=== PATIENT | male | born 1945 | race Caucasian/White ===

== ENCOUNTER → 2018-03-18 09:13 | Outpatient (CLI) | payer MEDICARE, OTHER, SELFPAY ==
[2018-03-22 13:45] LABS: QuantiFERON TB NEGATIVE (Negative)
== END ==
PROVIDERS: PCP Internal Medicine; Visit Provider Family Medicine
DX: Z11.1 Encounter for screening for respiratory tuberculosis (principal)
CPT/HCPCS: 36415; 86480

== ENCOUNTER → 2018-07-10 14:33 | Outpatient (CLI) | payer MEDICARE, OTHER, SELFPAY | PROVIDERS: Family Provider Internal Medicine; PCP Internal Medicine; Visit Provider Internal Medicine | DX: R19.7 Diarrhea, unspecified (principal) ==

== ENCOUNTER → 2018-07-10 14:41 | Outpatient (CLI) | payer MEDICARE, OTHER, SELFPAY ==
[2018-07-10 15:25] LABS: Add Manual Diff / Slide Review NO; Basophils Percent Auto 0.7 % (0-2); Eosinophils Percent Auto 2.6 % (2-4); Hematocrit 42.4 % (41-53); Hemoglobin 14.3 g/dL (13.5-17.5); Lymphocytes Percent Auto 31.2 % (25-40); Mean Corpuscular HGB Conc 33.8 % (30-36); Mean Corpuscular Hemoglobin 31.2 PG (26-34); Mean Corpuscular Volume 92.3 fL (80-100); Monocytes Percent Auto 7.3 % (3-14); Neutrophils Absolute Auto 3200 /uL (1500-7000); Neutrophils Percent Auto 58.2 % (50-75); Platelet Count 187 X10^3/uL (150-400); Red Cell Distribution Width 13.2 % (11.6-14.8); White Blood Cell Count 5.5 X10^3/uL (4.5-11.0)
[2018-07-10 16:31] LABS: Alanine Aminotransferase 28 IU/L (21-72); Albumin 4.1 g/dL (3.5-5.0); Albumin Globulin Ratio 1.5 (1.0-2.8); Alkaline Phosphatase 72 U/L (38-126); Amylase 66 U/L (30-110); Aspartate Aminotransferase 21 IU/L (17-59); BUN Creatinine Ratio 34.3 (6-22); Bilirubin Total 0.7 mg/dL (0.2-1.3); Blood Urea Nitrogen 24 mg/dL (9-20); Calcium 9.5 mg/dL (8.4-10.2); Carbon Dioxide 29 mmol/L (22-32); Chloride 104 mmol/L (98-107); Estimated Glomerular Filt Rate > 60.0 mL/min (>60); Globulin 2.8 g/dL (1.7-4.1); Glucose 90 mg/dL (80-110); HEMOLYSIS < 15 (0-50); Lipase 80 U/L (23-300); Potassium 4.3 mmol/L (3.4-5.1); Sodium 140 mmol/L (137-145); Total Protein 6.9 g/dL (6.3-8.2)
[2018-07-10 16:33] LABS: C-Reactive Protein Quant < 0.5 mg/dL (<1.0)
[2018-07-10 17:07] LABS: TSH w/ Reflex to FT4 1.17 uIU/mL (0.47-4.68)
[2018-07-10 18:17] LABS: Erythrocyte Sedimentation Rate 6 MM/HR (0-15)
[2018-07-14 14:37] LABS: PSA Free % 21 % (calc) (> 25); PSA, Total 4.7 ng/mL (< 4.1)
== END ==
PROVIDERS: Family Provider Internal Medicine; PCP Internal Medicine; Visit Provider Internal Medicine
DX: R97.20 Elevated prostate specific antigen [PSA] (principal); R19.7 Diarrhea, unspecified
CPT/HCPCS: 36415; 80053; 82150; 83690; 84153; 84154; 84443; 85025; 85651; 86140

== ENCOUNTER → 2018-07-11 09:06 | Outpatient (CLI) | payer MEDICARE, OTHER, SELFPAY ==
[2018-07-11 11:39] LABS: Adenovirus F 40/41 Not Detected (Not Detect); Astrovirus Not Detected (Not Detect); Campylobacter Not Detected (Not Detect); Clostridium difficile toxin AB Not Detected (Not Detect); Cryptosporidium Not Detected (Not Detect); Cyclospora cayetanensis Not Detected (Not Detect); Entamoeba histolytica Not Detected (Not Detect); Enteroaggregative E.coli Not Detected (Not Detect); Enteropathogenic E.coli Not Detected (Not Detect); Enterotoxigenic E.coli It/st Not Detected (Not Detect); Giardia lamblia Not Detected (Not Detect); Norovirus GI/GII Not Detected (Not Detect); Plesiomonsa shigelloides Not Detected (Not Detect); Rotavirus A Not Detected (Not Detect); Salmonella Not Detected (Not Detect); Sapovirus Not Detected (Not Detect); Shiga-like toxin-prod E.coli Not Detected (Not Detect); Shigella/Enteroinvasive E.coli Not Detected (Not Detect); Vibrio Not Detected (Not Detect); Vibrio cholerae Not Detected (Not Detect); Yersinia enterocolitica Not Detected (Not Detect)
== END ==
PROVIDERS: PCP Internal Medicine; Visit Provider Internal Medicine
DX: R19.7 Diarrhea, unspecified (principal)
CPT/HCPCS: 87507

== ENCOUNTER → 2018-09-18 12:01 | Outpatient (CLI) | payer MEDICARE, OTHER, SELFPAY ==
--- NOTE | 2018-09-18 12:03 | DI.RAD.S_ITS ---
PROCEDURE: XR CHEST 2V INDICATIONS: cough/sob TECHNIQUE: 2 views of the chest were acquired. COMPARISON: [facility], CHEST 2 VIEW, 05/12/2012, 15:08. [facility], CHEST 2 VIEW, 11/07/2006, 7:34. FINDINGS: Surgical changes and devices: None. Lungs and pleura: Lungs are clear. No pleural effusions or pneumothorax. Mediastinum: Mediastinal contours are normal. Heart size is normal. Bones and chest wall: No suspicious bony abnormalities. Soft tissues appear unremarkable. IMPRESSION: Normal for age, a source of current cough and shortness of breath symptoms is not found. Dictated by: Jose Hanson M.D. on 09/18/2018 at 13:55 Approved by: Jose Hanson M.D. on 09/18/2018 at 13:56
== END ==
PROVIDERS: PCP Internal Medicine; Visit Provider Internal Medicine
DX: R05 Cough (principal); R06.02 Shortness of breath
CPT/HCPCS: 71046

== ENCOUNTER → 2018-11-27 16:33 | Outpatient (CLI) | payer MEDICARE, OTHER, SELFPAY ==
--- NOTE | 2018-11-27 16:37 | DI.RAD.S_ITS ---
PROCEDURE: XR WRIST RT MIN 3V INDICATIONS: Right wrist pain, swelling TECHNIQUE: 3 views of the wrist were acquired. COMPARISON: None. FINDINGS: Bones: No fractures or dislocations. No suspicious bony lesions. Moderately severe degenerative change involving the radiocarpal joint and there is also mild widening of the scapholunate interspace, likely chronic. Ligamentous laxity as the likely cause. Scaphoid view: Not obtained of the scaphoid visualized shows no definite trauma. Soft tissues: No suspicious soft tissue calcifications. IMPRESSION: Moderately severe degenerative changes seen at the wrist, without acute trauma. Scapholunate widening indicates likelihood of ligamentous laxity clinical circumstance. Dictated by: Jose Hanson M.D. on 11/27/2018 at 17:05 Approved by: Jose Hanson M.D. on 11/27/2018 at 17:06
== END ==
PROVIDERS: PCP Internal Medicine; Referring Provider Registered Nurse; Visit Provider Registered Nurse
DX: M25.531 Pain in right wrist (principal); M25.431 Effusion, right wrist
CPT/HCPCS: 73110

== ENCOUNTER → 2019-02-26 11:26 | Outpatient (CLI) | payer MEDICARE, OTHER, SELFPAY ==
[2019-02-26 12:17] LABS: Add Manual Diff / Slide Review NO; Basophils Absolute Auto 0 /uL (0-100); Basophils Percent Auto 0.6 % (0-2); Eosinophils Absolute Auto 100 /uL (0-450); Eosinophils Percent Auto 2.4 % (2-4); Hematocrit 43.4 % (41-53); Hemoglobin 14.7 g/dL (13.5-17.5); Lymphocytes Absolute Auto 1800 /uL (1100-4500); Lymphocytes Percent Auto 29.2 % (25-40); Mean Corpuscular HGB Conc 33.9 % (30-36); Mean Corpuscular Hemoglobin 31.3 PG (26-34); Mean Corpuscular Volume 92.4 fL (80-100); Monocytes Absolute Auto 600 /uL (0-900); Monocytes Percent Auto 9.4 % (3-14); Neutrophils Absolute Auto 3500 /uL (1500-7000); Neutrophils Percent Auto 58.4 % (50-75); Platelet Count 192 X10^3/uL (150-400); Red Blood Cell Count 4.69 X10^6/uL (4.5-5.9); Red Cell Distribution Width 13.7 % (11.6-14.8)
[2019-02-26 12:30] LABS: Alanine Aminotransferase 15 IU/L (21-72); Albumin 4.3 g/dL (3.5-5.0); Albumin Globulin Ratio 1.3 (1.0-2.8); Alkaline Phosphatase 75 U/L (38-126); Aspartate Aminotransferase 21 IU/L (17-59); BUN Creatinine Ratio 28.9 (6-22); Bilirubin Total 0.8 mg/dL (0.2-1.3); Blood Urea Nitrogen 26 mg/dL (9-20); C-Reactive Protein Quant 0.5 mg/dL (<1.0); Calcium 9.3 mg/dL (8.4-10.2); Carbon Dioxide 30 mmol/L (22-32); Chloride 102 mmol/L (98-107); Estimated Glomerular Filt Rate > 60.0 mL/min (>60); Globulin 3.2 g/dL (1.7-4.1); Glucose 85 mg/dL (80-110); HEMOLYSIS < 15 (0-50); Potassium 4.7 mmol/L (3.4-5.1); Sodium 141 mmol/L (137-145); Total Protein 7.5 g/dL (6.3-8.2)
[2019-02-26 14:22] LABS: Free T4, Direct Thyroxine 0.88 ng/dL (0.78-2.19)
[2019-02-26 18:05] LABS: Erythrocyte Sedimentation Rate 51 MM/HR (0-15)
== END ==
PROVIDERS: PCP Internal Medicine; Visit Provider Internal Medicine
DX: K21.9 Gastro-esophageal reflux disease without esophagitis (principal); K58.9 Irritable bowel syndrome, unspecified; R63.4 Abnormal weight loss
CPT/HCPCS: 36415; 80053; 84439; 84443; 85025; 85651; 86140

== ENCOUNTER → 2019-10-11 11:18 | Outpatient (CLI) | payer MEDICARE, OTHER, SELFPAY ==
[2019-10-11 13:15] LABS: Prostate Specific Antigen 4.81 ng/mL (0.10-4.00)
== END ==
PROVIDERS: PCP Internal Medicine; Referring Provider Internal Medicine; Visit Provider Specialist
DX: N40.1 Benign prostatic hyperplasia with lower urinary tract symptoms (principal); R97.20 Elevated prostate specific antigen [PSA]
CPT/HCPCS: 36415; 84153

== ENCOUNTER → 2020-09-11 07:33 | Outpatient (CLI) | payer MEDICARE, OTHER, SELFPAY ==
[2020-09-11] MEDS: COVID-19 VACC, Ad26(JANSSEN)/PF 0.5 ML IM (07:39)
== END ==
PROVIDERS: PCP Internal Medicine; Visit Provider Internal Medicine
DX: Z23 Encounter for immunization (principal)
CPT/HCPCS: 0031A; 91303

== ENCOUNTER → 2020-11-02 07:10 | Outpatient (CLI) | payer MEDICARE, OTHER, SELFPAY ==
[2020-11-02 08:25] LABS: Alanine Aminotransferase 16 IU/L (<50); Albumin Globulin Ratio 1.3 (1.0-2.8); Alkaline Phosphatase 69 U/L (38-126); Aspartate Aminotransferase 26 IU/L (17-59); BUN Creatinine Ratio 31.4 (6-22); Bilirubin Total 0.4 mg/dL (0.2-1.3); Blood Urea Nitrogen 27 mg/dL (9-20); Calcium 9.6 mg/dL (8.4-10.2); Carbon Dioxide 30 mmol/L (22-32); Chloride 105 mmol/L (98-107); Cholesterol 196 mg/dL (140-199); Estimated Glomerular Filt Rate > 60.0 mL/min (>60); Globulin 3.1 g/dL (1.7-4.1); Glucose 98 mg/dL (80-110); HDL Cholesterol 47 mg/dL (40-60); HEMOLYSIS < 15 (0-50); LDL Cholesterol Calculated 131 mg/dL (<100); Potassium 4.9 mmol/L (3.4-5.1); Sodium 139 mmol/L (137-145); Total Protein 7.1 g/dL (6.3-8.2); Triglycerides 91 mg/dL (35-150)
[2020-11-02 08:55] LABS: Prostate Specific Antigen 6.29 ng/mL (0.10-4.00)
== END ==
PROVIDERS: Specialist; PCP Internal Medicine; Referring Provider Internal Medicine; Visit Provider Internal Medicine
DX: N40.0 Benign prostatic hyperplasia without lower urinary tract symptoms (principal); Z13.220 Encounter for screening for lipoid disorders; K21.9 Gastro-esophageal reflux disease without esophagitis; R60.9 Edema, unspecified
CPT/HCPCS: 36415; 80053; 80061; 84153

== ENCOUNTER → 2021-04-23 16:34 | Outpatient (CLI) | payer MEDICARE, OTHER, SELFPAY | PROVIDERS: PCP Internal Medicine; Referring Provider Specialist; Visit Provider Specialist | DX: R97.20 Elevated prostate specific antigen [PSA] (principal) | CPT/HCPCS: 36415; 84153 ==

== ENCOUNTER → 2021-09-06 16:15 | Outpatient (CLI) | payer MEDICARE, OTHER, SELFPAY ==
--- NOTE | 2021-09-06 16:17 | DI.RAD.S_ITS ---
PROCEDURE: XR CHEST 2V INDICATIONS: cough/wheezing TECHNIQUE: 2 views of the chest were acquired. COMPARISON: [facility], , CHEST 2 VIEW, 05/12/2012, 15:08. [facility], , XR CHEST 2V, 09/18/2018, 12:10. FINDINGS: Surgical changes and devices: None. Lungs and pleura: Lungs are clear, aside from small left upper lobe calcified granuloma.. No pleural effusions or pneumothorax. Mediastinum: Mediastinal contours are normal. Heart size is normal. Bones and chest wall: No suspicious bony abnormalities. Soft tissues appear unremarkable. IMPRESSION: No acute cardiopulmonary disease. Dictated by: David Aguilar RR Interpreted: Davy Andrade MD on 09/06/2021 at 16:32 Transcribed by: EDER on 09/06/2021 at 16:32 Approved by: Davy Andrade M.D. on 09/06/2021 at 16:44
== END ==
PROVIDERS: PCP Internal Medicine; Referring Provider Internal Medicine; Visit Provider Internal Medicine
DX: R05.9 Cough, unspecified (principal); R06.2 Wheezing
CPT/HCPCS: 71046

== ENCOUNTER → 2021-09-28 06:54 | Outpatient (CLI) | payer MEDICARE, OTHER, SELFPAY ==
[2021-09-28 08:48] LABS: COVID-19 CEPHEID PCR (VTM/NP) Negative (Negative)
== END ==
PROVIDERS: PCP Internal Medicine; Referring Provider Internal Medicine; Visit Provider Internal Medicine
DX: Z20.822 Contact with and (suspected) exposure to COVID-19 (principal)
CPT/HCPCS: C9803; U0003; U0005

== ENCOUNTER → 2021-09-28 07:03 | Outpatient (CLI) | payer MEDICARE, OTHER, SELFPAY ==
--- NOTE | 2021-10-03 10:01 | PM.PFT.1 ---
Pulmonary Function Test Referral & Results Date Patient Seen: 09/28/21 Requesting provider: Pankaj Brewer Results: The spirometry demonstrates an FVC of 3.62 L which is 83% of predicted. The FEV1 was measured at 2.74 L which is 87% of predicted. The FEV1/FVC ratio was 76 which is 105% of predicted. Following the administration of bronchodilator there was 9% improvement in FEV1 and a 37% improvement in FEF 25-75% Lung volumes show an SVC of 3.80 L which is 82% of predicted. The diffusing capacity was measured at 23.0 weight which is 68% of predicted. No hemoglobin value was provided, so no correction for potential anemia could be made, if appropriate. The maximum voluntary ventilation was normal Interpretation: This study demonstrates possibly very mild obstructive lung disease based on reduction FEV1 although FEV1/FVC ratio is preserved. There is some evidence of benefit following bronchodilator particularly small airway flow as noted above based on improvement in FEF 25-75%. Shape a flow volume loop also supports the presence of some degree of obstructive lung disease There is also very mild reduction in SVC suggesting the possibility of mild restrictive lung disease which may well explain the abnormality in FEV1 above There is also mild reduction diffusing capacity suggesting element of disease at the capillary alveolar level Altogether this is consistent with a diagnosis of very mild COPD Clinical correlation suggested
== END ==
PROVIDERS: PCP Internal Medicine; Referring Provider Internal Medicine; Visit Provider Internal Medicine
DX: R05.9 Cough, unspecified (principal); R06.2 Wheezing; Z20.822 Contact with and (suspected) exposure to COVID-19; Z87.891 Personal history of nicotine dependence; J98.8 Other specified respiratory disorders
CPT/HCPCS: 94060; 94726; 94729; C9803; U0003; U0005

== ENCOUNTER → 2021-10-18 14:26 | Outpatient (CLI) | payer MEDICARE, OTHER, SELFPAY ==
[2021-10-18 15:45] LABS: Prostate Specific Antigen 6.07 ng/mL (0.10-4.00)
== END ==
PROVIDERS: PCP Internal Medicine; Referring Provider Specialist; Visit Provider Specialist
DX: R97.20 Elevated prostate specific antigen [PSA] (principal)
CPT/HCPCS: 36415; 84153

== ENCOUNTER → 2022-02-11 06:46 | Outpatient (CLI) | payer MEDICARE, OTHER, SELFPAY ==
--- NOTE | 2022-02-11 06:48 | DI.CT.S_ITS ---
PROCEDURE: CT SINUS SCREEN WO CON INDICATIONS: CHRONIC PANSINUSITIS/POST NASAL DRIP/EPISTAXIS TECHNIQUE: Noncontrast 3.0 mm axial images acquired from the frontal sinuses to the mid-sella, with coronal and sagittal reformats. For radiation dose reduction, the following was used: automated exposure control, adjustment of mA and/or kV according to patient size. COMPARISON: None. FINDINGS: Image quality: Excellent. Maxillary Sinuses: There is moderate mucosal thickening seen involving the left maxillary sinus. The medial wall of the left maxillary sinus is demineralized. Mild mucosal thickening is seen involving the right maxillary sinus, with minimal demineralization involving the medial wall of the right maxillary sinus. Ethmoid Air Cells: No bony remodeling or destruction. Sinuses are clear. Sphenoid Sinuses: No bony remodeling or destruction. Sinuses are clear. Frontal Sinuses: No bony remodeling or destruction. Mild mucosal thickening is seen involving the inferomedial frontal sinuses. Ostiomeatal Complexes: The right ostiomeatal complex is constitutionally narrowed, with a Candy cell seen. The left ostiomeatal complex is completely opacified and demineralized. Miscellaneous: Visualized intra-orbital contents are normal. No blessing bullosa or paradoxical turbinate curvature. There is moderate leftward nasal septal deviation. Note is made of a cavum septum pellucidum. When discovered in isolation, this is considered to be a developmental variant of no clinical consequence. IMPRESSION: Paranasal sinus disease is seen, which is worst involving the left maxillary sinus. Areas of bony demineralization are seen, which are consistent with chronic sinusitis. The left ostiomeatal complex is completely opacified and demineralized. The right ostiomeatal complex is narrowed, with a Candy air cell seen. There is moderate leftward nasal septal deviation. Dictated by: Bk Haddad M.D. on 02/11/2022 at 10:56 Approved by: Bk Haddad M.D. on 02/11/2022 at 10:59
== END ==
PROVIDERS: PCP Internal Medicine; Referring Provider Otolaryngology; Visit Provider Otolaryngology
DX: J32.4 Chronic pansinusitis (principal); R09.82 Postnasal drip; R04.0 Epistaxis; J34.2 Deviated nasal septum
CPT/HCPCS: 70486

== ENCOUNTER → 2022-04-09 17:03 | Outpatient (CLI) | payer MEDICARE, OTHER, SELFPAY ==
[2022-04-09 18:19] LABS: Prostate Specific Antigen 5.96 ng/mL (0.10-4.00)
== END ==
PROVIDERS: PCP Internal Medicine; Referring Provider Specialist; Visit Provider Specialist
DX: N40.0 Benign prostatic hyperplasia without lower urinary tract symptoms (principal); R31.9 Hematuria, unspecified; R97.20 Elevated prostate specific antigen [PSA]
CPT/HCPCS: 36415; 84153

== ENCOUNTER → 2023-01-03 09:40 | Outpatient (CLI) | payer MEDICARE, OTHER, SELFPAY ==
[2023-01-04 08:39] LABS: PSA Free % 23.9 % (.); PSA, Total 5.7 ng/mL (0.0-4.0)
== END ==
PROVIDERS: PCP Internal Medicine; Referring Provider Specialist; Visit Provider Specialist
DX: R97.20 Elevated prostate specific antigen [PSA] (principal)
CPT/HCPCS: 36415; 84153; 84154

== ENCOUNTER → 2023-03-06 13:07 | Outpatient (CLI) | payer MEDICARE, OTHER, SELFPAY ==
--- NOTE | 2023-03-06 | DI.RAD.S_ITS ---
PROCEDURE: FL WRIST INJECTION MR/CT LT INDICATIONS: LEFT WRIST PAIN COMPARISON: [facility], CR, XR WRIST 3+ VIEWS LEFT, 02/24/2023, 15:46. TECHNIQUE: After informed consent had been obtained, the wrist was examined fluoroscopically, and a site chosen for injection of the radiocarpal compartment from a dorsal approach. Skin was prepped and draped in a sterile fashion and 1% lidocaine infiltrated from the skin down to the articular surface. A hypodermic needle was then introduced into the articular space and a modest amount of contrast medium was instilled confirming intra-articular needle tip placement. This was followed by approximately 4 mL of a dilute gadolinium solution. Needle was removed and dressing was applied. The patient experienced no complications throughout the procedure and left the fluoroscopic suite in no apparent distress. FINDINGS: A single fluoroscopic spot image demonstrates intra-articular location to injected iodinated contrast. IMPRESSION: Successful fluoroscopic-guided administration of dilute Gadolinium solution for wrist MR arthrogram. Dictated by: Jerri Flores M.D. on 03/06/2023 at 14:13 Approved by: Jerri Flores M.D. on 03/06/2023 at 14:13
--- NOTE | 2023-03-06 | DI.MRI.S_ITS ---
PROCEDURE: MR WRIST LT W CON INDICATIONS: LEFT WRIST PAIN TECHNIQUE: After the administration of 3-4 mL of dilute intra-articular Gadolinium contrast into the radiocarpal compartment, coronal T1 spin echo with fat saturation and T2 fast spin echo with fat saturation, axial T1 spin echo and T2 fast spin echo with fat saturation, sagittal T1 spin echo with and without fat saturation through the wrist. COMPARISON: [facility] [place], CR, XR WRIST 3+ VIEWS LEFT, 02/24/2023, 15:46. FINDINGS: Image quality: Excellent. Bones and cartilage: Moderate osteoarthritic changes are noted throughout wrist joints with significant joint space narrowing, subchondral sclerosis and subcortical cystic changes particularly involving 1st CMC joint and scaphoid trapezial joint. Mild marrow edema involving multiple carpal bones are noted without discrete fracture line. No evidence of osteonecrosis. Carpal ligaments: The scapholunate ligament is attenuated with intrasubstance T2 hyperintense signal . There is suggestion of full-thickness perforation involving central portion of scapholunate ligament with gadolinium extravasation into the mid-carpal compartment. The lunotriquetral ligament appears intact. The radioscaphocapitate and radiolunotriquetral ligaments both appear thickened with intrasubstance T2 hyperintense signal. The dorsal intercarpal and radiotriquetral ligaments appear intact. On sagittal images, the pisohamate ligament appears intact. Triangular fibrocartilage complex: The triangular fibrocartilage disc, with its styloid and foveal lamina, appears intact. No gadolinium extravasation into the distal radioulnar joint. The adjacent meniscal homolog appears normal. The ulnar collateral ligament appears intact. The extensor carpi ulnaris tendon is normal in location and morphology. Tendons and soft tissues: The carpal tunnel structures appear normal, including the median nerve. The ulnar nerve appears normal within Guyon's canal. All six extensor tendon compartments demonstrate normal morphology, without pathologic tendon sheath fluid. No soft tissue ganglion cysts. IMPRESSION: 1. Moderate wrist joint osteoarthritis. No fracture or dislocation. No evidence of gross avascular necrosis. 2. Suggestion of focal full-thickness perforation involving central portion of scapholunate ligament with contrast extravasating into mid-carpal compartment. The lunotriquetral ligament is intact. Suggestion of sprain/intrasubstance partial-thickness tear involving radial scaphoid capitate and radio lunotriquetral ligaments. 3. Triangular fibrocartilage complex is intact. 4. Extensor and flexor tendons of wrist are grossly intact. Dictated by: Davy Andrade M.D. on 03/07/2023 at 9:52 Approved by: Davy Andrade M.D. on 03/07/2023 at 10:00
== END ==
PROVIDERS: PCP Internal Medicine; Referring Provider Orthopaedic Surgery; Visit Provider Orthopaedic Surgery
DX: M19.032 Primary osteoarthritis, left wrist (principal); M25.532 Pain in left wrist
CPT/HCPCS: 20605; 73222; 76000; 77002

== ENCOUNTER → 2023-07-04 08:09 | Outpatient (CLI) | payer MEDICARE, OTHER, SELFPAY ==
[2023-07-04 10:12] LABS: Add Manual Diff / Slide Review NO; Basophils Absolute Auto 0 /uL (0-100); Basophils Percent Auto 0.8 % (0-2); Eosinophils Absolute Auto 100 /uL (0-450); Eosinophils Percent Auto 2.4 % (2-4); Hemoglobin 14.1 g/dL (13.5-17.5); Lymphocytes Absolute Auto 1600 /uL (1100-4500); Lymphocytes Percent Auto 30.5 % (25-40); Mean Corpuscular HGB Conc 33.5 % (30-36); Mean Corpuscular Hemoglobin 30.5 PG (26-34); Mean Corpuscular Volume 90.8 fL (80-100); Monocytes Absolute Auto 800 /uL (0-900); Monocytes Percent Auto 14.5 % (3-14); Neutrophils Absolute Auto 2700 /uL (1500-7000); Neutrophils Percent Auto 51.8 % (50-75); Platelet Count 238 X10^3/uL (150-400); Red Blood Cell Count 4.62 X10^6/uL (4.5-5.9); Red Cell Distribution Width 13.6 % (11.6-14.8); White Blood Cell Count 5.3 X10^3/uL (4.5-11.0)
[2023-07-04 10:39] LABS: Alanine Aminotransferase 16 IU/L (<50); Albumin Globulin Ratio 1.2 (1.0-2.8); Alkaline Phosphatase 60 U/L (38-126); BUN Creatinine Ratio 20.2 (6-22); Bilirubin Total 0.8 mg/dL (0.2-1.3); Blood Urea Nitrogen 18 mg/dL (9-20); Calcium 9.5 mg/dL (8.4-10.2); Carbon Dioxide 30 mmol/L (22-32); Chloride 100 mmol/L (98-107); Cholesterol 221 mg/dL (140-199); Estimated Glomerular Filt Rate > 60 mL/min (>60); Globulin 3.3 g/dL (1.7-4.1); Glucose 102 mg/dL (80-110); HDL Cholesterol 52 mg/dL (40-60); HEMOLYSIS < 15 (0-50); LDL Cholesterol Calculated 152 mg/dL (<100); Potassium 4.8 mmol/L (3.4-5.1); Sodium 136 mmol/L (137-145); Total Protein 7.3 g/dL (6.3-8.2); Triglycerides 86 mg/dL (35-150)
[2023-07-04 11:11] LABS: TSH w/ Reflex to FT4 0.82 uIU/mL (0.47-4.68)
[2023-07-04 15:25] LABS: Aspartate Aminotransferase 26 IU/L (17-59)
== END ==
LOC: LAB 08:10
PROVIDERS: PCP Internal Medicine; Referring Provider Internal Medicine; Visit Provider Internal Medicine
DX: E78.2 Mixed hyperlipidemia (principal); R00.2 Palpitations; E03.9 Hypothyroidism, unspecified
CPT/HCPCS: 36415; 80053; 80061; 84443; 85025

== ENCOUNTER → 2023-08-12 06:38 | Outpatient (CLI) | payer MEDICARE, OTHER, SELFPAY | LOC: CAR 06:39 | PROVIDERS: PCP Internal Medicine; Referring Provider Internal Medicine; Visit Provider Internal Medicine | DX: R00.2 Palpitations (principal) | CPT/HCPCS: 93246 ==

== ENCOUNTER → 2023-08-21 13:47 | Outpatient (CLI) | payer MEDICARE, OTHER, SELFPAY ==
[2023-08-21 15:19] LABS: Prostate Specific Antigen 7.72 ng/mL (0.10-4.00)
== END ==
PROVIDERS: PCP Internal Medicine; Referring Provider Specialist; Visit Provider Specialist
DX: R97.20 Elevated prostate specific antigen [PSA] (principal)
CPT/HCPCS: 36415; 84153

== ENCOUNTER → 2023-10-03 09:20 | Outpatient (CLI) | payer MEDICARE, OTHER, SELFPAY ==
--- NOTE | 2023-10-03 09:21 | DI.ECHO.S_ITS ---
[facility] +---------+ : : [address] : [place] : : : : [id number] : : : : Phone: [phone]+ Echocardiogram Report + + :Name: JAYLYN ANNE Study Date: 10/03/2023 Height: 71 in : :[facility] ReadingLocation: Weight: 163 lb : : Gender: Male BSA: 1.9 m2 : :: 1945 Age: 78 yrs BP: 170/100 mmHg: :Reason For Study: VENTRICULAR TACHYCARDIA : :Ordering Physician: DEYSI, : :MUNRIA Magdaleno Performed By: Augustine Duong : :Referring: MUNIRA JO : + + Interpretation Summary The ejection fraction is estimated to be 55-60%. Grade I diastolic dysfunction. The right ventricular systolic function is normal. The right ventricular systolic pressure is estimated to be at least 46 mmHg based on an estimated right atrial pressure of 8 mm Hg. Both atria are normal in size. There is mild tricuspid regurgitation. There is mild mitral regurgitation. There is mild aortic regurgitation. Procedure: A two-dimensional transthoracic echocardiogram with color flow and Doppler was performed. The study quality was technically adequate. Comparison is made with the echocardiogram of 05/23/2017. The patient was in normal sinus rhythm during the exam. The heart rate ranged between 47-67 bpm during the study. Left Ventricle: The left ventricle is normal in size and wall thickness. The ejection fraction is estimated to be 55-60%. Grade I diastolic dysfunction. Right Ventricle: The right ventricle is mildly dilated. The right ventricular systolic function is normal. Atria: Both atria are normal in size. The interatrial septum grossly appears intact with no obvious evidence for an atrial septal defect. Mitral Valve: The mitral valve is grossly normal. There is borderline mitral valve prolapse. There is no mitral valve stenosis. There is mild mitral regurgitation. Aortic Valve: The aortic valve is trileaflet. There is no aortic valve stenosis. There is mild aortic regurgitation. Tricuspid Valve: The tricuspid valve is normal in structure and function. There is no tricuspid stenosis. There is mild tricuspid regurgitation. The right ventricular systolic pressure is estimated to be at least 46 mmHg based on an estimated right atrial pressure of 8 mm Hg. Pulmonic Valve: The pulmonic valve is not well visualized. There is no pulmonic valvular stenosis. There is mild pulmonic regurgitation. Great Vessels: The aortic root is normal size. The dimensions of the ascending aorta are normal. The IVC is dilated (diameter is greater than 2.1 cm) yet it collapses greater than 50% with a sniff. This suggests a right atrial pressure of 8 mm Hg. Pericardium/ Pleura There is no pericardial effusion. There is no pleural effusion. MMode/2D Measurements & Calculations LVIDd: 5.0 cm LVOT diam: 2.2 cm LVIDs: 3.0 cm Ao root diam: 3.4 cm FS: 39.0 % asc Aorta Diam: 3.5 cm IVSd: 0.82 cm Ao Arch Diam (Prox Trans): 3.0 cm LVPWd: 0.79 cm LV grijalva. diameter/BSA (cm/m^2): 2.6 LV sys. diameter/BSA (cm/m^2): 1.6 LA A2 area: 20.0 cm2 RA long axis: 5.9 cm LA A4 area: 18.9 cm2 RA area: 19.5 cm2 LA length (vol): 5.5 cm RA vol: 55.0 ml LA vol: 58.9 ml RA : 28.4 ml/m2 LA vol index: 30.5 ml/m2 IVC diam: 2.2 cm RVD1 (basal): 4.4 cm RVD2 (mid): 3.4 cm TAPSE: 3.6 cm Doppler Measurements & Calculations Ao V2 max: 109.7 cm/sec LVOT Max Lew: 106.2 cm/sec Ao V2 mean: 67.2 cm/sec LV V1 max P.5 mmHg Ao max P.8 mmHg LV V1 VTI: 23.0 cm Ao mean P.2 mmHg ELENA(I,D): 3.5 cm2 Ao V2 VTI: 25.6 cm ELENA(V,D): 3.7 cm2 sev ratio: 0.90 ELENA indexed to BSA (cm^2/m^2): 1.8 MV E max lew: 64.8 cm/sec TR max lew: 308.2 cm/sec MV A max lew: 56.7 cm/sec TR max P.1 mmHg MV E/A: 1.1 PA V2 max: 99.2 cm/sec Med Peak E' Lew: 6.2 cm/sec PA V2 mean: 69.6 cm/sec E/E' med: 10.5 PA mean P.1 mmHg Lat Peak E' Lew: 6.8 cm/sec PA pr(Accel): 37.9 mmHg E/E' lat: 9.5 E/e' average: 10.0 MV dec time: 0.17 sec [facility] 88.3 ml Reading Physician:PM
== END ==
PROVIDERS: PCP Internal Medicine; Referring Provider Internal Medicine; Visit Provider Internal Medicine
DX: I08.3 Combined rheumatic disorders of mitral, aortic and tricuspid valves (principal); I47.20 Ventricular tachycardia, unspecified
CPT/HCPCS: 93306

== ENCOUNTER → 2023-11-19 16:09 | Outpatient (CLI) | payer MEDICARE, OTHER, SELFPAY ==
[2023-11-21 08:13] LABS: PSA Free % 26.2 % (.); PSA, Total 6.5 ng/mL (0.0-4.0)
== END ==
PROVIDERS: PCP Internal Medicine; Referring Provider Specialist; Visit Provider Specialist
DX: N40.0 Benign prostatic hyperplasia without lower urinary tract symptoms (principal); R97.20 Elevated prostate specific antigen [PSA]
CPT/HCPCS: 36415; 84153; 84154

== ENCOUNTER → 2024-09-23 15:24 | Outpatient (CLI) | payer MEDICARE, OTHER, SELFPAY ==
[2024-09-25 08:36] LABS: PSA Free % 30.3 % (.); PSA, Total 6.8 ng/mL (0.0-4.0)
== END ==
PROVIDERS: Urology; PCP Internal Medicine; Referring Provider Internal Medicine; Visit Provider Internal Medicine
DX: N40.0 Benign prostatic hyperplasia without lower urinary tract symptoms (principal); R97.20 Elevated prostate specific antigen [PSA]
CPT/HCPCS: 36415; 84153; 84154

== ENCOUNTER → 2025-02-02 07:02 | Outpatient (CLI) | payer MEDICARE, OTHER, SELFPAY ==
[2025-02-02 08:11] LABS: Alanine Aminotransferase 18 IU/L (<50); Albumin 4.0 g/dL (3.5-5.0); Albumin Globulin Ratio 1.5 (1.0-2.8); Alkaline Phosphatase 58 U/L (38-126); Blood Urea Nitrogen 29 mg/dL (9-20); Calcium 9.1 mg/dL (8.4-10.2); Carbon Dioxide 30 mmol/L (22-32); Chloride 100 mmol/L (98-107); Cholesterol 238 mg/dL (140-199); Estimated Glomerular Filt Rate > 60 mL/min (>60); Globulin 2.6 g/dL (1.7-4.1); Glucose 94 mg/dL (70-99); HDL Cholesterol 74 mg/dL (40-60); HEMOLYSIS < 15 (0-50); Potassium 4.8 mmol/L (3.4-5.1); Sodium 137 mmol/L (137-145); Total Protein 6.6 g/dL (6.3-8.2); Triglycerides 135 mg/dL (35-150)
== END ==
PROVIDERS: PCP Internal Medicine; Referring Provider Internal Medicine; Visit Provider Internal Medicine
DX: E78.2 Mixed hyperlipidemia (principal)
CPT/HCPCS: 36415; 80053; 80061

== ENCOUNTER → 2025-03-21 15:42 | Outpatient (CLI) | payer MEDICARE, OTHER, SELFPAY ==
--- NOTE | 2025-03-21 15:44 | DI.CT.S_ITS ---
PROCEDURE: CT SINUS SCREEN WO CON INDICATIONS: SINUS PAIN TECHNIQUE: Noncontrast 3.0 mm axial images acquired from the frontal sinuses to the mid- sella, with coronal and sagittal reformats. For radiation dose reduction, the following was used: automated exposure control, adjustment of mA and/or kV according to patient size. COMPARISON: [facility], CT, CT SINUS SCREEN WO CON, 02/11/2022, 6:52. FINDINGS: Image quality: Excellent. Maxillary Sinuses: No bony remodeling or destruction. Mild mucosal thickening of the bilateral maxillary sinuses, improved on left and similar the right compared to prior. Ethmoid Air Cells: No bony remodeling or destruction. Sinuses are clear. Sphenoid Sinuses: No bony remodeling or destruction. Sinuses are clear. Frontal Sinuses: No bony remodeling or destruction. Sinuses are clear. Ostiomeatal Complexes: Ostiomeatal complexes are partially opacified on the left and patent on the right. Right-sided Candy cell. Miscellaneous: Visualized intra-orbital contents are normal. No blessing bullosa or paradoxical turbinate curvature. Moderate leftward nasal septal deviation. IMPRESSION: Mild bilateral maxillary sinus disease which is improved on the left compared to prior. Dictated by: Bang Allison M.D. on 03/22/2025 at 8:36 Approved by: Bang Allison M.D. on 03/22/2025 at 8:40
== END ==
PROVIDERS: PCP Internal Medicine; Referring Provider Otolaryngology; Visit Provider Otolaryngology
DX: J32.4 Chronic pansinusitis (principal)
CPT/HCPCS: 70486

== ENCOUNTER → 2025-05-11 14:22 | Outpatient (CLI) | payer MEDICARE, OTHER, SELFPAY | PROVIDERS: PCP Internal Medicine; Referring Provider Internal Medicine; Visit Provider Urology | DX: R97.20 Elevated prostate specific antigen [PSA] (principal) | CPT/HCPCS: 36415; 84153; 84154 ==

== ENCOUNTER → 2025-05-19 15:13 | Outpatient (CLI) | payer MEDICARE, OTHER, SELFPAY | PROVIDERS: PCP Internal Medicine; Visit Provider Urology | DX: N40.1 Benign prostatic hyperplasia with lower urinary tract symptoms (principal); R97.20 Elevated prostate specific antigen [PSA] | CPT/HCPCS: 51798; 81002; 99213 ==